=== PATIENT | female | born 1985 | race Two or more races ===

== ENCOUNTER 2021-11-23 15:58 | Emergency (ER) | payer SELFPAY ==
[~2021-11-23] VITALS: Ht 147.3 cm; Wt 55.3 kg
[2021-11-23 16:05] VITALS: BP 126/76
--- NOTE | 2021-11-23 16:10 | NUR ---
PT AMBULATED TO ER BED 2 WITH A STEADY GAIT.
--- NOTE | 2021-11-23 16:17 | NUR ---
36 Y/O FEMALE C/O SORE THROAT X3 DAYS. PT TOOK IBUPROFEN PRIOR TO ARRIVAL WITH SOME RELIEF. DENIES FEVER/CHILLS. DENIES N/V/D. DENIES PMH NKA
--- NOTE | 2021-11-23 16:28 | NUR ---
ADILSON LOCKHART AT PT BEDSIDE FOR FURTHER EVALUATION.
[2021-11-23] MEDS: KETOROLAC 30 MG/ML VIAL IM ONE (16:42)
[2021-11-23] MEDS ORDERED: PRED20TA5 PO (16:46)
[2021-11-23] MEDS ORDERED: NAPR-54 PO (16:46)
[2021-11-23] MEDS ORDERED: PENI500T20 PO (16:46)
[2021-11-23 17:02] VITALS: BP 126/76
--- NOTE | 2021-11-23 17:02 | NUR ---
Patient discharged with v/s stable. Written and verbal after care instructions given FOR PHARYNGITIS and explained. Patient alert, oriented and verbalized understanding of instructions. Ambulatory with steady gait. All questions addressed prior to discharge. ID band removed. Patient advised to follow up with PMD. Rx of NAPROXEN, PENICILLIN, AND PREDNISONE given. Patient educated on indication of medication including possible reaction and side effects. Opportunity to ask questions provided and answered.
== END 2021-11-23 17:02 | disposition home or self-care (01) ==
LOC: MED 15:58
DX: J02.9 Acute pharyngitis, unspecified (principal); R51.9 Headache, unspecified; Z79.899 Other long term (current) drug therapy
CPT/HCPCS: 96372; 99283; J1885